=== PATIENT | female | born 1955 | race Caucasian/White ===

== ENCOUNTER 2017-12-24 04:52 | Emergency (ER) | payer OTHER ==
[~2017-12-24] VITALS: Ht 162.6 cm; Wt 90.7 kg
[~2017-12-24 04:52] MED LIST: ALBUTEROL SULF8.5 GM INH; AZITHROMYCIN250 MG ORAL; BENADRYL25 MG ORAL; GUAIFENESIN-CO118 M1 ORAL; IBUPROFEN800 MG ORAL; LEVAQUIN750 MG ORAL; LISINOPRIL5 MG ORAL; METFORMIN HCL500 M1 ORAL; NEURONTIN100 MG ORAL; NORCO 5-325 TA1 EACH ORAL; PEPCID20 MG ORAL; PREDNISONE20 MG ORAL; PROMETHAZINE-C118 M1 ORAL; SYNTHROID50 MCG ORAL; TRAMADOL HCL50 MG ORAL
[2017-12-24] MEDS ORDERED: guaiFENesin w/Codeine 5ml Liq ud ORAL STA (05:45)
[2017-12-24] MEDS ORDERED: Ipratropium 0.02% Inh Soln 2.5ml UD HHN ONE (05:45)
[2017-12-24] MEDS ORDERED: Solu-MEDROL 125mg Inj IVP ONE (05:45)
[2017-12-24 06:05] VITALS: BP 122/66
[2017-12-24] MEDS: Albuterol ud Inhalation HHN SCH ×3 (06:06→06:35)
--- NOTE | 2017-12-24 06:08 | Emergency Room Report ---
History of Present Illness General Chief Complaint: Upper Respiratory Illness Source: Patient Present Illness HPI Patient presents with several days of cough. The cough is so severe she thinks it might have opened up a hernia by her operation in her abdomen causing pain. She states cough is nonproductive. She tried taking some Robitussin didn't help. She's has a history of smoking. She's never been ill in this way. She' s never used an inhaler before and denies asthma. She denies chest pain per se but she gets out of breath easily. Pain in her abdomen is 5/10 when she is coughing. No calf pain or swelling. No rashes. No NVD or dysuria. She says she stopped smoking 2 days ago because it was causing the cough to be worse. Allergies: Coded Allergies: PENICILLINS (Verified Allergy, Severe, 08/24/13) Patient History Past Medical History: see triage record Past Surgical History: angle Social History: Reports: smoking Social History Narrative caregiver Reviewed Nursing Documentation: PMH: Agreed; PSxH: Agreed Nursing Documentation-PMH Hx Hypertension: Yes Hx Pacemaker: No Hx Asthma: No Hx COPD: No Hx Diabetes: Yes Hx Cancer: No Hx Gastrointestinal Problems: No Hx Dialysis: No Hx Neurological Problems: No Hx Cerebrovascular Accident: No Hx Seizures: No Review of Systems All Other Systems: negative except mentioned in HPI Physical Exam Vital Signs Date Time Temp Pulse Resp B/P (MAP) Pulse Ox O2 Delivery O2 Flow Rate FiO2 12/24/17 05:35 99.4 79 18 122/66 92 Room Air 99.3 Sp02 EP Interpretation: reviewed, abnormal - interpreted as low by me General Appearance: well appearing, GCS 15 Head: normocephalic Eyes: bilateral eye normal inspection, bilateral eye PERRL ENT: moist mucus membranes Neck: supple Respiratory: wheezing - audible at bedside, expiration, inspiration Cardiovascular #1: regular rate, rhythm Cardiovascular #2: 2+ radial (R) Gastrointestinal: normal inspection, normal bowel sounds, no mass, non- distended, hernia - medial angle scar - tender and easily reduced Musculoskeletal: back normal, gait/station normal, normal range of motion Neurologic: alert, oriented x3 Skin: normal inspection, warm/dry Medical Decision Making Diagnostic Impression: Primary Impression: New-onset bronchospasm Additional Impressions: Hypoxia Bronchospasm Bronchitis ER Course Patient presents with bronchospasm and cough. DDx: cardiac asthma, bronchitis, PNA, bronchospasm amongst others. Evaluation with EKG, CXR and labs. Treatment with solumedrol, beta agents and IV hydration. Will also give greta AC for pain/cough. Hypoxia is significant and consideration for admission with these new symptoms is undertaken. EKG without injury. CXR no infiltrate. Labs with normal WBC and CMP. Patient with dramatic improvement. However, due to new onset of symptoms and hypoxia, admission sought. Patient refusing to be admitted and states she feels good to go home. I advised her to return if not doing well. Patient stable for outpatient observation and treatment. Laboratory Tests Test 12/24/17 06:18 White Blood Count 8.6 K/UL (4.8-10.8) Red Blood Count 4.60 M/UL (4.20-5.40) Hemoglobin 13.8 G/DL (12.0-16.0) Hematocrit 41.7 % (37.0-47.0) Mean Corpuscular Volume 91 FL (80-99) Mean Corpuscular Hemoglobin 29.9 PG (27.0-31.0) Mean Corpuscular Hemoglobin Concent 33.0 G/DL (32.0-36.0) Red Cell Distribution Width 12.1 % (11.6-14.8) Platelet Count 228 K/UL (150-450) Mean Platelet Volume 10.7 FL (6.5-10.1) H Neutrophils (%) (Auto) 65.3 % (45.0-75.0) Lymphocytes (%) (Auto) 26.4 % (20.0-45.0) Monocytes (%) (Auto) 6.8 % (1.0-10.0) Eosinophils (%) (Auto) 0.8 % (0.0-3.0) Basophils (%) (Auto) 0.7 % (0.0-2.0) Prothrombin Time 10.0 SEC (9.30-11.50) Prothrombin Time INR 0.9 (0.9-1.1) PTT 27 SEC (23-33) Sodium Level 137 MMOL/L (136-145) Potassium Level 3.9 MMOL/L (3.5-5.1) Chloride Level 101 MMOL/L (98-107) Carbon Dioxide Level 27 MMOL/L (21-32) Anion Gap 9 mmol/L (5-15) Blood Urea Nitrogen 12 mg/dL (7-18) Creatinine 0.9 MG/DL (0.55-1.30) Estimate Glomerular Filtration Rate > 60 mL/min (>60) Glucose Level 158 MG/DL (74-106) H Lactic Acid Level 1.40 mmol/L (0.4-2.0) Calcium Level 9.5 MG/DL (8.5-10.1) Total Bilirubin 0.2 MG/DL (0.2-1.0) Aspartate Amino Transferase (AST) 27 U/L (15-37) Alanine Aminotransferase (ALT) 52 U/L (12-78) Alkaline Phosphatase 77 U/L (46-116) Total Creatine Kinase 57 U/L (26-308) Troponin I 0.000 ng/mL (0.000-0.056) Pro-B-Type Natriuretic Peptide 21 pg/mL (0-125) Total Protein 8.2 G/DL (6.4-8.2) Albumin 3.9 G/DL (3.4-5.0) Globulin 4.3 g/dL Albumin/Globulin Ratio 0.9 (1.0-2.7) L EKG Diagnostic Results Rate: normal Rhythm: NSR ST Segments: no acute changes Rhythm Strip Diag. Results EP Interpretation: yes Rhythm: NSR, no PVC's, no ectopy Chest X-Ray Diagnostic Results Chest X-Ray Diagnostic Results : Chest X-Ray Ordered: Yes # of Views/Limited/Complete: 1 View Indication: Shortness of Breath EP Interpretation: Yes Interpretation: no effusion, no pneumothorax, other - Increased foley bilaterally Impression: Other Electronically Signed by: Electronically signed by Alejandro Fofana MD Last Vital Signs Date Time Temp Pulse Resp B/P (MAP) Pulse Ox O2 Delivery O2 Flow Rate FiO2 12/24/17 09:13 99.3 79 18 122/66 94 Room Air 21 99.3 Status: improved Disposition: HOME, SELF-CARE Condition: Improved Scripts Guaifenesin/Codeine Phos* (ROBITUSSIN AC*) 118 Ml Liquid 5 ML ORAL Q6H PRN for For Cough, #90 ML 0 Refills Prov: Alejandro Fofana M.D. 12/24/17 Albuterol Sulfate* (ALBUTEROL SULFATE MDI*) 8.5 Gm Hfa.aer.ad 2 PUFF INH Q6H, #1 EA 0 Refills Prov: Alejandro Fofana M.D. 12/24/17 Prednisone* (PREDNISONE*) 20 Mg Tablet 40 MG ORAL DAILY, #10 TAB Prov: Alejandro Fofana M.D. 12/24/17 Referrals: [facility],REFERRING (PCP) Alejandro Fofana M.D. Dec 24, 2017 06:08
[2017-12-24 07:05] LABS: INR 0.9 (0.9-1.1)
[2017-12-24 07:06] LABS: ANION GAP 9 mmol/L (5-15); BLOOD UREA NITROGEN 12 mg/dL (7-18); CALCIUM 9.5 MG/DL (8.5-10.1); CARBON DIOXIDE 27 MMOL/L (21-32); CHLORIDE 101 MMOL/L (98-107); CREATININE 0.9 MG/DL (0.55-1.30); POTASSIUM 3.9 MMOL/L (3.5-5.1); SODIUM 137 MMOL/L (136-145)
[2017-12-24 07:07] LABS: BASOPHILS % (AUTO) 0.7 % (0.0-2.0); EOSINOPHILS % (AUTO) 0.8 % (0.0-3.0); HEMATOCRIT 41.7 % (37.0-47.0); HEMOGLOBIN 13.8 G/DL (12.0-16.0); LYMPHOCYTES % (AUTO) 26.4 % (20.0-45.0); MEAN CORPUSCULAR VOLUME 91 FL (80-99); MONOCYTES % (AUTO) 6.8 % (1.0-10.0); NEUTROPHILS % (AUTO) 65.3 % (45.0-75.0); PLATELET COUNT 228 K/UL (150-450); RED CELL DISTRIBUTION WIDTH 12.1 % (11.6-14.8); WHITE BLOOD COUNT 8.6 K/UL (4.8-10.8)
[2017-12-24 07:18] LABS: ALANINE AMINOTRANSFERASE 52 U/L (12-78); ALBUMIN 3.9 G/DL (3.4-5.0); ALBUMIN/GLOBULIN RATIO 0.9 (1.0-2.7); ALKALINE PHOSPHATASE 77 U/L (46-116); ASPARTATE AMINO TRANSFERASE 27 U/L (15-37); BILIRUBIN,TOTAL 0.2 MG/DL (0.2-1.0); CREATINE KINASE 57 U/L (26-308)
[2017-12-24] MEDS ORDERED: CALCIUM500 M3 PO (07:46)
[2017-12-24] MEDS ORDERED: OMEGA-3100 M1 PO (07:46)
[2017-12-24] MEDS ORDERED: ASPIR 8181 MG ORAL (07:46)
[2017-12-24] MEDS ORDERED: Solu-MEDROL 40mg Inj IVP SCH (08:45)
[2017-12-24] MEDS ORDERED: Norco 5mg/325mg tab ORAL PRN (08:45)
[2017-12-24] MEDS ORDERED: GUAIFENESIN-CO118 M1 ORAL (08:59)
[2017-12-24] MEDS ORDERED: PREDNISONE20 MG ORAL (08:59)
[2017-12-24] MEDS ORDERED: ALBUTEROL SULF8.5 GM INH (08:59)
[2017-12-24] MEDS ORDERED: Levofloxacin 500mg tab ORAL SCH (09:00)
[2017-12-24] MEDS ORDERED: Aspirin EC 81mg tab ORAL SCH (09:00)
[2017-12-24] MEDS ORDERED: Lisinopril 2.5mg tab ORAL SCH (09:00)
[2017-12-24] MEDS ORDERED: metFORMIN 500mg tab ORAL SCH (09:00)
[2017-12-24] MEDS ORDERED: Heparin 5000 units/ml inj SUBQ SCH (09:00)
[2017-12-24 09:13] VITALS: BP 122/66
[2017-12-24] MEDS ORDERED: NovoLOG Insulin Flexpen SUBQ SCH (11:30)
--- NOTE | 2017-12-24 11:33 | Diagnostic Imaging Report ---
Indication: Dyspnea Technique: XRAY Chest 1v Comparison: 10/24/2013 Findings: Heart size and mediastinal contours are stable. There is no focal consolidation, pneumothorax or pleural effusion. Degenerative change of the spine. Osseous structures demonstrate no acute abnormality. Impression: No radiographic evidence of acute cardiopulmonary disease.
--- NOTE | 2017-12-24 14:02 | Cardiology Report ---
APPROVED REPORT EKG Measurement Heart [id number] Normal sinus rhythm Normal ECG
== END 2017-12-24 09:15 | disposition home or self-care (01) ==
LOC: EMR 05:51
DX: J98.01 Acute bronchospasm (principal); R09.02 Hypoxemia; J40 Bronchitis, not specified as acute or chronic; I10 Essential (primary) hypertension; E11.9 Type 2 diabetes mellitus without complications; Z88.0 Allergy status to penicillin
CPT/HCPCS: 36415; 71045; 80053; 82550; 83605; 83880; 84484; 85025; 85610; 85730; 93005; 94640; 94664; 96361; 96374; 99285; J2930

== ENCOUNTER 2017-12-25 03:55 | Emergency (ER) | payer OTHER ==
[~2017-12-25] VITALS: Ht 162.6 cm; Wt 90.7 kg
[~2017-12-25 03:55] MED LIST changes: +ASPIR 8181 MG ORAL; +CALCIUM500 M3 PO; +OMEGA-3100 M1 PO
[2017-12-25 04:30] VITALS: BP 122/70
[2017-12-25] MEDS ORDERED: Sodium Chloride 500ML 500 ML IV ONE (04:32)
[2017-12-25] MEDS ORDERED: Solu-MEDROL 125mg Inj IVP ONE (04:45)
[2017-12-25] MEDS ORDERED: Ipratropium 0.02% Inh Soln 2.5ml UD HHN ONE (04:45)
[2017-12-25] MEDS: Albuterol ud Inhalation HHN SCH ×3 (04:54→05:21)
[2017-12-25] MEDS ORDERED: Promethazine/Codeine 5ml UD ORAL ONE (05:15)
[2017-12-25 05:30] VITALS: BP 121/70
[2017-12-25 05:33] LABS: BASOPHILS % (AUTO) 0.4 % (0.0-2.0); HEMOGLOBIN 13.3 G/DL (12.0-16.0); LYMPHOCYTES % (AUTO) 18.6 % (20.0-45.0); MEAN CORPUSCULAR VOLUME 90 FL (80-99); MONOCYTES % (AUTO) 7.2 % (1.0-10.0); NEUTROPHILS % (AUTO) 73.7 % (45.0-75.0); PLATELET COUNT 249 K/UL (150-450); RED BLOOD COUNT 4.46 M/UL (4.20-5.40); WHITE BLOOD COUNT 17.5 K/UL (4.8-10.8)
--- NOTE | 2017-12-25 05:39 | Emergency Room Report ---
History of Present Illness General Chief Complaint: Dyspnea/Respdistress Source: Patient Present Illness HPI Patient present with complaints of re-exacerbation of her shortness of breath patient was here yesterday with similar complaints of shortness of breath Some exertional dyspnea patient is also a heavy smoker and reports that she has not smoked for the past 4 days Denies any chest pain denies any back or flank pain Patient has history of hypertension and hypercholesterolemia however has not been diagnosed with COPD or other lung disease Allergies: Coded Allergies: PENICILLINS (Verified Allergy, Severe, 08/24/13) Patient History Past Medical History: see triage record Pertinent Family History: none Now: No Reviewed Nursing Documentation: PMH: Agreed; PSxH: Agreed Nursing Documentation-PMH Hx Hypertension: Yes Hx Pacemaker: No Hx Asthma: No Hx COPD: No Hx Diabetes: Yes Hx Cancer: No Hx Gastrointestinal Problems: No Hx Dialysis: No Hx Neurological Problems: No Hx Cerebrovascular Accident: No Hx Seizures: No Review of Systems All Other Systems: negative except mentioned in HPI Physical Exam Vital Signs Date Time Temp Pulse Resp B/P (MAP) Pulse Ox O2 Delivery O2 Flow Rate FiO2 12/25/17 04:19 98.1 79 22 129/70 90 Room Air 98.1 12/25/17 04:45 21 Sp02 EP Interpretation: reviewed, abnormal - 90% as a low oxygenation after breathing treatment and on 2 L nasal cannula patient saturating at 96% which is a normal oxygenation, General Appearance: mild distress - Coughing Head: normocephalic, atraumatic Eyes: bilateral eye PERRL, bilateral eye EOMI ENT: normal pharynx, no angioedema Neck: supple, thyroid normal Respiratory: crackles - And fine wheezing both lower lobes Cardiovascular #1: regular rate, rhythm, no edema, no gallop Gastrointestinal: non tender, soft Musculoskeletal: normal inspection, back normal Neurologic: alert, oriented x3, responsive Skin: normal color, no rash Lymphatic: no adenopathy Medical Decision Making Diagnostic Impression: Primary Impression: Dyspnea Additional Impressions: Respiratory distress Bronchospasm ER Course Patient is a fairly complex patient with multiple differential to consideration including but not limited to cardiac cardiopulmonary and vascular emergencies Patient felt better after breathing treatments was also provided with steroids Patient at times appears to be hypoxic on room air Given the repeat presentation and the initial AMA patient was requested for admission in further improved condition Labs Test 12/25/17 05:05 White Blood Count 17.5 K/UL (4.8-10.8) Red Blood Count 4.46 M/UL (4.20-5.40) Hemoglobin 13.3 G/DL (12.0-16.0) Hematocrit 40.0 % (37.0-47.0) Mean Corpuscular Volume 90 FL (80-99) Mean Corpuscular Hemoglobin 29.7 PG (27.0-31.0) Mean Corpuscular Hemoglobin Concent 33.2 G/DL (32.0-36.0) Red Cell Distribution Width 12.0 % (11.6-14.8) Platelet Count 249 K/UL (150-450) Mean Platelet Volume 10.1 FL (6.5-10.1) Neutrophils (%) (Auto) 73.7 % (45.0-75.0) Lymphocytes (%) (Auto) 18.6 % (20.0-45.0) Monocytes (%) (Auto) 7.2 % (1.0-10.0) Eosinophils (%) (Auto) 0.0 % (0.0-3.0) Basophils (%) (Auto) 0.4 % (0.0-2.0) D-Dimer 0.32 mg/L FEU (0.00-0.49) Sodium Level 136 MMOL/L (136-145) Potassium Level 4.2 MMOL/L (3.5-5.1) Chloride Level 102 MMOL/L (98-107) Carbon Dioxide Level 22 MMOL/L (21-32) Anion Gap 12 mmol/L (5-15) Blood Urea Nitrogen 19 mg/dL (7-18) Creatinine 1.0 MG/DL (0.55-1.30) Estimat Glomerular Filtration Rate 55.8 mL/min (>60) Glucose Level 135 MG/DL (74-106) Calcium Level 9.8 MG/DL (8.5-10.1) Total Bilirubin 0.2 MG/DL (0.2-1.0) Aspartate Amino Transf (AST/SGOT) 24 U/L (15-37) Alanine Aminotransferase (ALT/SGPT) 52 U/L (12-78) Alkaline Phosphatase 77 U/L (46-116) Total Creatine Kinase 182 U/L (26-308) Creatine Kinase MB 1.8 NG/ML (0.0-3.6) Creatine Kinase MB Relative Index 0.9 Troponin I 0.000 ng/mL (0.000-0.056) Pro-B-Type Natriuretic Peptide 67 pg/mL (0-125) Total Protein 8.6 G/DL (6.4-8.2) Albumin 4.0 G/DL (3.4-5.0) Globulin 4.6 g/dL Albumin/Globulin Ratio 0.9 (1.0-2.7) Rhythm Strip Diag. Results EP Interpretation: yes Rate: 77 Rhythm: NSR, no PVC's, no ectopy Chest X-Ray Diagnostic Results Chest X-Ray Diagnostic Results : Chest X-Ray Ordered: Yes # of Views/Limited/Complete: 1 View Indication: Chest Pain EP Interpretation: Yes Interpretation: no consolidation, no effusion, no pneumothorax Impression: No acute disease - 12.24.2017 Electronically Signed by: Kamila Parra DO Last Vital Signs Date Time Temp Pulse Resp B/P (MAP) Pulse Ox O2 Delivery O2 Flow Rate FiO2 12/25/17 05:21 98 20 98 Room Air 21 12/25/17 04:19 98.1 129/70 98.1 Status: improved Disposition: ADMITTED INPATIENT Condition: Serious Referrals: NON PHYSICIAN (PCP) Kamila Parra DO Dec 25, 2017 05:39
[2017-12-25 05:46] LABS: ANION GAP 12 mmol/L (5-15); BLOOD UREA NITROGEN 19 mg/dL (7-18); CALCIUM 9.8 MG/DL (8.5-10.1); CARBON DIOXIDE 22 MMOL/L (21-32); CHLORIDE 102 MMOL/L (98-107); POTASSIUM 4.2 MMOL/L (3.5-5.1); SODIUM 136 MMOL/L (136-145)
[2017-12-25 06:13] LABS: ALANINE AMINOTRANSFERASE 52 U/L (12-78); ALBUMIN/GLOBULIN RATIO 0.9 (1.0-2.7); ALKALINE PHOSPHATASE 77 U/L (46-116); ASPARTATE AMINO TRANSFERASE 24 U/L (15-37); BILIRUBIN,TOTAL 0.2 MG/DL (0.2-1.0); CKMB 1.8 NG/ML (0.0-3.6); CREATINE KINASE 182 U/L (26-308)
[2017-12-25] MEDS ORDERED: LORazepam Inj 2mg/ml 1ml IV ONE (06:15)
[2017-12-25 06:30] VITALS: BP 118/56
--- NOTE | 2017-12-25 07:30 | History and Physical Report ---
DATE OF ADMISSION: 12/25/2017 CHIEF COMPLAINT: COPD exacerbation. HISTORY OF PRESENT ILLNESS: This is a pleasant 62-year-old female. She has a history of hypertension, COPD. She is a long-time smoker with over a 40-pack year of history of smoking. She presented to the emergency room with complaints of cough, congestion, subjective fevers, and myalgias. On evaluation there, her x-ray was clear. She was saturating well on room air. She was given a dose of intravenous steroids. There was some consideration for admitting the patient. According to the patient, she has had similar episodes in the past. She is currently taking prednisone, which was prescribed earlier in the day and she also received doses of IV Solu-Medrol. She denies any chest pain or shortness of breath. She does have some wheezing noted. PAST MEDICAL HISTORY: As above. PAST SURGICAL HISTORY: None. CURRENT MEDICATIONS: Reconciled. Reviewed. ALLERGIES: Include penicillin. FAMILY HISTORY: Noncontributory. SOCIAL HISTORY: The patient has 40-pack year history of smoking. REVIEW OF SYSTEMS: Negative for cough and URI symptoms. PHYSICAL EXAMINATION: VITAL SIGNS: Temperature 98, pulse 69, respirations 18, blood pressure 118/56, and the patient saturating 96% on room air. GENERAL: The patient is no apparent distress. HEART: Regular rate and rhythm. LUNGS: Clear. ABDOMEN: Soft, nontender, and nondistended. EXTREMITIES: Without clubbing, cyanosis, or edema. LABORATORY AND DIAGNOSTIC DATA: Labs, CMP was unremarkable. White count was 17. D-dimer was negative. Chest x-ray is clear. ASSESSMENT: This is a pleasant female admitted with complaints of mild COPD exacerbation. The patient is stable for discharge. I will send her home with a prednisone taper, Combivent inhaler has also been prescribed in addition to cough medications, Levaquin and Breo and Spiriva. The patient has been instructed to return if she has any worsening of symptoms. She has been strongly encouraged to discontinue smoking. Boyd Arellano M.D. DR: COBY JOB#: [id number] CC:
[2017-12-25 08:09] VITALS: BP 120/56
--- NOTE | 2017-12-25 16:10 | Cardiology Report ---
APPROVED REPORT EKG Measurement Heart [id number] Normal sinus rhythm Nonspecific ST abnormality Abnormal ECG
== END 2017-12-25 08:16 | disposition home or self-care (01) ==
LOC: EMR 04:35 → CANBEDREQ 06:58 → EMR 08:16
DX: J44.1 Chronic obstructive pulmonary disease with (acute) exacerbation (principal); J98.01 Acute bronchospasm; F17.200 Nicotine dependence, unspecified, uncomplicated; I10 Essential (primary) hypertension; E78.00 Pure hypercholesterolemia, unspecified; E11.9 Type 2 diabetes mellitus without complications; Z88.0 Allergy status to penicillin
CPT/HCPCS: 36415; 80053; 82550; 82553; 83880; 84484; 85025; 85379; 93005; 94640; 94664; 96374; 96375; 99285; J2930; J7040